=== PATIENT | male | born 1990 | race Caucasian/White ===

== ENCOUNTER 2017-12-15 16:33 | Emergency (ER) | payer SELFPAY ==
[~2017-12-15] VITALS: Ht 160 cm; Wt 54.4 kg
[2017-12-15 16:40] VITALS: Ht 160 cm; Wt 54.4 kg
[2017-12-15 18:13] VITALS: BP 125/87
== END 2017-12-15 18:13 | disposition home or self-care (01) ==
LOC: ED 16:33
DX: J45.901 Unspecified asthma with (acute) exacerbation (principal)
CPT/HCPCS: J7512